=== PATIENT | female | born 1990 | race Two or more races ===

== ENCOUNTER 2022-04-27 22:57 | Emergency (ER) | payer SELFPAY ==
[~2022-04-27] VITALS: Ht 177.8 cm; Wt 86.0 kg
[2022-04-27 23:25] VITALS: BP 122/89
[2022-04-28 00:01] LABS: CLARITY URINE CLOUDY (CLEAR); COLOR URINE YELLOW (YELLOW); KETONES URINE 2+ (NEGATIVE); LEUKOCYTE ESTERASE URINE 1+ (NEGATIVE); NITRITE URINE POSITIVE (NEGATIVE); OCCULT BLOOD URINE 3+ (NEGATIVE); PH URINE 5.5 (4.5-8.0); PROTEIN URINE 2+ (NEGATIVE); SPECIFIC GRAVITY URINE 1.038 (1.005-1.030)
[2022-04-28] MEDS ORDERED: CEPH500T MT (01:06)
[2022-04-28] MEDS ORDERED: CLOT15CR27 TP (01:06)
== END 2022-04-28 01:37 | disposition home or self-care (01) ==
LOC: ER 23:07
DX: N39.0 Urinary tract infection, site not specified (principal); N76.0 Acute vaginitis; R03.0 Elevated blood-pressure reading, without diagnosis of hypertension
CPT/HCPCS: 81003; 99283